=== PATIENT | female | born 1960 | race Caucasian/White ===

== ENCOUNTER → 2017-11-02 | Outpatient (CLI) | payer OTHER ==
[~2017-11-02] MED LIST: HYDR25TA4 PO; IBUP-1451 PO; OMEP20TA PO; OXYC7.5T65 PO; OXYSR10 PO; TIZA4CAP PO
== END | disposition home or self-care (01) ==
LOC: C.CPL 15:46
PROVIDERS: ATTEND Otolaryngology
DX: Z01.810 Encounter for preprocedural cardiovascular examination (principal)

== ENCOUNTER → 2017-11-12 | Day surgery (SDC) | payer OTHER ==
[2017-10-28 13:14] VITALS: Ht 160 cm; Wt 102.3 kg
--- NOTE | 2017-11-11 19:19 | HISTORY & PHYSICAL EXAMINATION ---
DATE OF ADMISSION: 11/12/2017 DIAGNOSIS: Obstructive sleep apnea and septal deviation and adhesions. HISTORY OF PRESENT ILLNESS: This 57-year-old lady presented with significant nasal obstruction and is unable to use her CPAP for her sleep apnea. She was found to have septal deviation and adhesions blocking her nose and she desires definitive treatment. PAST MEDICAL HISTORY: Medical problems, sleep apnea, acid reflux and osteoarthritis. PREVIOUS SURGERIES: Sinus surgery in 2001 and did stimulator for back pain in 2014. MEDICATIONS: OxyContin, oxycodone, and omeprazole. ALLERGIES: None known. FAMILY HISTORY: Negative. SOCIAL HISTORY: Negative. PHYSICAL EXAMINATION: GENERAL: WNWD female. VITAL SIGNS: 5 foot 3, 230 pounds. HEAD: Normocephalic. EYES: Normal. EARS: Tympanic membranes intact. NOSE: Nasal passages septal deviation to the right with an adhesion with obstruction. THROAT: Oropharynx normal. HEART: RRR. LUNGS: Clear. ABDOMEN: Soft. GENITOURINARY: Deferred. EXTREMITIES: Full range of motion. IMPRESSION: Septal deviation with adhesions and sleep apnea. PLAN: Septoplasty with endoscopic lysis of adhesions and radiofrequency volume reduction of the tongue base.
[~2017-11-12] VITALS: Ht 160 cm; Wt 102.3 kg
[~2017-11-12] MED LIST changes: +ACETAMINOPHEN/HYDROCODONE ELIX 15 ML/CUP UDP PO PRN; +ATROPINE SULFATE 0.1 MG/ML 5ML SYR IV PRN; +BACITRACIN OINT 15 GM TUBE ONE; +CEFAZOLIN 2000MG IV PUSH 10 ML IV SCH; +DEXAMETHASONE SOD INJ 4 MG/ML VIAL ONE; +EpHEDrine SULFATE INJ 50 MG/ML AMP IV PRN; +EpINEphrine INJ 1MG/ML AMP 1 MG/ML AMP ONE; +FENTANYL CITRATE INJ 50 MCG/1 ML 2 ML VIAL ONE; +GELATIN SPONGE 12-7MM ONE; +GELATIN SPONGE SZ 100 ONE; +HYDR1SOL10 PO; +HYDROmorphone INJ 1 MG/ML SYR IV PRN; +LACTATED RINGER'S 1000ML 1,000 ML IV SCH; +LIDOCAINE 4% INH SOLN 4 ML BTL ONE; +LIDOCAINE HCL 2% 2 ML VIAL (20MG/ML) ONE; +LIDOCAINE HCL 2% LOCAL 50ML VIAL INJ ONE; +MIDAZOLAM HCL 1 MG/ML 2ML VIAL ONE; +NEOMYC/POLYMYX/BACITR/HC OP OI 3.5 GM TUBE ONE; +ONDANSETRON INJ 2 MG/ML 2 ML VIAL IV PRN; +ONDANSETRON INJ 2 MG/ML 2 ML VIAL ONE; +PROPOFOL IV EMULSION 10 MG/ML 20 ML VIAL IV ONE; +SODIUM CHLORIDE 0.9% 1000ML 1,000 ML IV SCH; +SUCCINYLCHOLINE CHLORIDE 20 MG/ML 10 ML VIAL IV ONE; +TRIAMCINOLONE ACET 40 MG/ML VIAL ONE
[2017-11-12 11:03] VITALS: BP 140/78; PULSE 85; TEMP 37; O2SAT 95
[2017-11-12 11:12] LABS: HEMATOCRIT 44.3 % (37-47); HEMOGLOBIN 14.5 g/dL (12.0-16.0); MEAN CELL VOLUME 88.6 fL (80-100); MEAN PLATELET VOLUME 9.8 fL (7.4-10.4); PLATELET COUNT 313 K/uL (130-400); RED CELL DISTRIBUTION WIDTH CV 13.8 % (11.5-14.5); RED CELL DISTRIBUTION WIDTH SD 44.5 fL (36.4-46.3); WHITE BLOOD COUNT 8.03 K/uL (4.8-10.8)
[2017-11-12 11:14] LABS: MEAN CORPUSCULAR HGB CONC 32.7 g/dl (32-36)
[2017-11-12 11:34] LABS: CALCIUM 8.9 mg/dl (8.5-10.1); CREATININE 1.15 mg/dl (0.60-1.20); POTASSIUM 3.9 mmol/L (3.5-5.1)
--- NOTE | 2017-11-12 12:35 | History & Physical Bridge Note ---
H&P Re-Evaluation Bridge Note: I have examined the patient, reviewed the History & Physical and in the interval since the performance of the History & Physical I have noted the following changes of clinical significance: No changes noted
--- NOTE | 2017-11-12 13:54 | [facility] Post Operative Brief Note ---
Immediate Operative Summary Operative Date Nov 12, 2017. Pre-Operative Diagnosis Sleep apnea, septal deviation Post-Operative Diagnosis Same Procedure(s) Performed Septoplasty with Endoscopic Lysis of Adhesions, Somnoplasty Surgeon Dr Kerr Prenatal Genetic Counselor Surgeon(s) None Estimated Blood Loss 40ml Findings Consistent with Post-Op Diagnosis Specimens None Drains None Anesthesia Type General Complication(s) none Disposition Accompanied Pt To Recover: no Disposition: Recovery Room / PACU
--- NOTE | 2017-11-12 13:59 | [facility] Operative Report ---
Operative Report Operative Date Nov 12, 2017. Pre-Operative Diagnosis Sleep apnea, septal deviation Post-Operative Diagnosis Same Procedure(s) Performed Septoplasty with Endoscopic Lysis of Adhesions, Somnoplasty Surgeon Dr Kerr Contact Lens Blocker And Cutter Surgeon(s) None Estimated Blood Loss 40ml Findings Septal deviation and adhesion Specimens None Drains none Anesthesia Gen. endotracheal Complication(s) None Disposition Recovery Room / PACU Indications 57-year-old female with significant sleep apnea, unable to wear CPAP, septal deviation to the right with adhesion. Description of Procedure The patient was brought to the operating room and placed in the supine position. General endotracheal anesthesia was induced. The nose was decongested using cottonoids with the topical solution of 4 mL of 4% Xylocaine with 1 mL of epinephrine. The adhesion was on the right side of the septum and was divided using the #15 blade. The septum was deviated to the right. A right [place] incision was made and the mucoperichondrium was elevated off the right side of the septum isolating a bony cartilaginous spur projecting to the right posteriorly. The incision was made through the cartilage and then bilateral posterior tunnels were elevated isolating the spur which was removed in small pieces using the [place] rongeurs. The inferior turbinates were fractured laterally. Anterior nasal packing of [place] was placed on the right side. Attention was turned to the tongue base for radiofrequency volume reduction of the tongue base. The [employer] machine was used to create 7 double-pronged lesions with the settings at 85C in the rapid lesion mode and at 600 J for each double-pronged lesion. The pharynx was suctioned clean with saline, and the patient tolerated procedure well and was taken recovery area in satisfactory condition I attest to the content of the Intraoperative Record and any orders documented therein. Any exceptions are noted below.
--- NOTE | 2017-11-12 14:01 | Discharge Instructions-SurgCtr ---
Discharge Instructions Date of Service Nov 12, 2017. Visit Reason for Visit: Septal Adhesions Discharge Discharge Diagnosis / Problem: plus sleep apnea Discharge Goals Goal(s): Therapeutic intervention Activity Recommendations Activity Limitations: per Instructions/Follow-up section Anesthesia . Post Anesthesia Instructions: If you have had General Anesthesia or IV Sedation: * Do not drive today. * Resume driving when surgeon permits. * Do not make important decisions or sign legal documents today. * Call surgeon for: 1. Temperature elevations greater than 101 degrees F. 2. Uncontrollable pain. 3. Excessive bleeding. 4. Persistent nausea and vomiting. 5. Medication intolerance (nausea, vomiting or rash). * For nausea and vomiting use only clear liquids such as: tea, soda, bouillon until nausea subsides, then gradually increase diet as tolerated. * If you have any concerns or questions, call your surgeon's office. If physician is unavailable and it is an emergency, call 911 or go to the nearest emergency room. . Instructions / Follow-Up Instructions / Follow-Up ACTIVITY RECOMMENDATIONS: * Being up and around is good, but no strenuous activity, heavy lifting or physical exertion for one week. * Keep your head elevated 30 degrees when lying down or sleeping. * Do not blow your nose for 48 hours, sniff back instead. * Avoid hot showers. OVER THE COUNTER MEDICATIONS: * You may use Tylenol * Avoid aspirin or aspirin containing products, e.g. as they may increase bleeding. SPECIAL CARE INSTRUCTIONS: * Expect to have bloody drainage from your nose and/or down your throat for one to three days. Change drip pad as needed. * Begin irrigating your nose with saline solution today, at least six to ten times per day and sniff back to help remove old clots or crust. * You may experience nasal and facial congestion, pain and pressure, this is normal. * Please call with any significant and/or progressive pain, redness, swelling around the eyes, visual changes, fever of 101.5 degrees F, active bleeding or any problems or concerns. * If active bleeding occurs, spray the nose three times at one minute intervals with Afrin spray and call or cell phone: . If unable to reach the doctor, go to the nearest Emergency Department. Special Diet: * Avoid extremely hot fluids. FOLLOW UP VISIT: Follow-up Visit with Dr. Kerr If not already scheduled, please call to schedule. Diet Recommendations Home Diet: resume previous diet Procedures Procedures Performed: Septoplasty with Endoscopic Lysis of Adhesions, Somnoplasty Pending Studies Studies pending at discharge: no Medical Emergencies . Who to Call and When: Medical Emergencies: If at any time you feel your situation is an emergency, please call 911 immediately. . Non-Emergent Contact Non-Emergency issues call your: Primary Care Provider . . "Provider Documentation" section prepared by Sun Kerr. . [place] Drug Monitoring Program Search Results: no issues identified
[2017-11-12] MEDS: FENTANYL CITRATE INJ 50 MCG/1 ML 2 ML VIAL IV PRN ×3 (14:33→14:45)
--- NOTE | 2017-11-12 15:01 | Anesthesiology Progress Note ---
Anesthesia Post Op Note Date & Time Nov 12, 2017 at 15:01 Vital Signs Pain Intensity: 4 Vital Signs Past 12 Hours Date Time Temp Pulse Resp B/P (MAP) Pulse Ox O2 Delivery O2 Flow Rate FiO2 11/12/17 14:50 93 14 137/87 94 Room Air 11/12/17 14:40 91 18 170/97 95 Nasal Cannula 11/12/17 14:30 96 18 185/94 10 Oxymask 10 11/12/17 14:20 100 18 197/97 10 Oxymask 10 11/12/17 14:13 36.6 100 18 177/88 99 Oxymask 10 11/12/17 11:03 37 85 18 140/78 (98) 95 Room Air Notes Mental Status: alert / awake / arousable, participated in evaluation Pt Amnestic to Procedure: Yes Nausea / Vomiting: adequately controlled Pain: adequately controlled Airway Patency, RR, SpO2: stable & adequate BP & HR: stable & adequate Hydration State: stable & adequate Anesthetic Complications: no major complications apparent
[2017-11-12 15:15] VITALS: BP 142/72; PULSE 94; TEMP 36.4; O2SAT 95
[2017-11-12 15:45] VITALS: BP 143/70; PULSE 93; O2SAT 96
[2017-11-12 16:11] VITALS: BP 155/84; PULSE 92; O2SAT 95
[2017-11-12 16:45] VITALS: BP 161/80; PULSE 91; TEMP 36.4; O2SAT 94
[2017-11-12 17:18] VITALS: BP 154/82; PULSE 88; O2SAT 95
== END | disposition home or self-care (01) ==
LOC: C.ACU 10:28
PROVIDERS: ATTEND Otolaryngology
DX: J34.2 Deviated nasal septum (principal); G47.33 Obstructive sleep apnea (adult) (pediatric); I10 Essential (primary) hypertension; M19.90 Unspecified osteoarthritis, unspecified site; Z98.890 Other specified postprocedural states